=== PATIENT | female | born 1935 | race Caucasian/White ===

== ENCOUNTER 2017-09-27 08:48 | Emergency (ER) | payer OTHER, BC ==
[~2017-09-27] VITALS: Ht 165.1 cm; Wt 56.7 kg
[2017-09-27] MEDS ORDERED: ACCUNEB SO1.25 MG/1 INH (09:41)
[2017-09-27] MEDS ORDERED: NORVASC10 MG PO (09:41)
[2017-09-27] MEDS ORDERED: ZOCOR20 MG PO (09:42)
[2017-09-27] MEDS ORDERED: OMEPRAZOLE 20 M20 M1 PO (09:42)
[2017-09-27] MEDS ORDERED: SPIRIVA INH (09:42)
[2017-09-27] MEDS ORDERED: LISINOPRIL20 MG PO (09:42)
[2017-09-27] MEDS ORDERED: HYDROCHLOROTHIA25 M2 PO (09:42)
[2017-09-27] MEDS ORDERED: ASPIRIN325 PO (09:42)
[2017-09-27] MEDS ORDERED: FISH OIL 1,001000 M2 PO (09:43)
[2017-09-27] MEDS ORDERED: CENTRUM ADULTS1 EACH PO (09:43)
[2017-09-27] MEDS ORDERED: CALICUM 500+D1 EACH PO (09:43)
[2017-09-27] MEDS ORDERED: NORCO 5-325 TA1 EACH PO (10:39)
[2017-09-27 11:10] VITALS: BP 130/75
== END 2017-09-27 11:00 | disposition home or self-care (01) ==
LOC: ER 08:48
DX: S32.019A Unspecified fracture of first lumbar vertebra, initial encounter for closed fracture (principal); I10 Essential (primary) hypertension; J44.9 Chronic obstructive pulmonary disease, unspecified; F17.210 Nicotine dependence, cigarettes, uncomplicated; W01.0XXA Fall on same level from slipping, tripping and stumbling without subsequent striking against object, initial encounter; Y93.89 Activity, other specified; Y92.89 Other specified places as the place of occurrence of the external cause; Y99.8 Other external cause status